=== PATIENT | male | born 1965 | race Caucasian/White ===

== ENCOUNTER 2025-02-24 14:41 | Emergency (ER) | payer MEDICAID, OTHER ==
[~2025-02-24] VITALS: Ht 157.5 cm; Wt 90.0 kg
[~2025-02-24 14:41] MED LIST: AMLO-258 PO; ATOR40TA71 PO; CARV3.1231 PO
[2025-02-24] MEDS ORDERED: DAPA10TA PO (14:48)
[2025-02-24] MEDS ORDERED: APIX5TAB PO (14:48)
[2025-02-24] MEDS ORDERED: CARV6.2534 PO (14:48)
[2025-02-24] MEDS ORDERED: POTA8CAP20 PO (14:48)
[2025-02-24] MEDS ORDERED: BUME1TAB6 PO (14:48)
[2025-02-24 15:16] LABS: ANION GAP 11 mmol/L (8-16); CALCIUM, TOTAL 9.1 mg/dL (8.8-10.5); CARBON DIOXIDE 26 mmol/L (22-29); CHLORIDE 106 mmol/L (98-107); CREATININE 1.77 mg/dL (0.60-1.30); GLOMERULAR FILTR. RATE CALC 40 mL/min (>60); GLUCOSE,RANDOM 127 mg/dL (70-110); POTASSIUM 3.5 mmol/L (3.5-5.1); SODIUM SERUM 143 mmol/L (136-145); UREA NITROGEN, BLOOD 19 mg/dL (7-18)
[2025-02-24 15:20] LABS: BASOPHILS % (AUTO) 1.1 % (0.0-2.0); EOSINOPHILS % (AUTO) 4.5 % (1.0-6.0); HEMATOCRIT 42.4 % (41-53); HEMOGLOBIN 14.6 g/dL (13.5-17.5); LYMPHOCYTES # (AUTO) 2.3 K/uL (1.0-4.8); LYMPHOCYTES % (AUTO) 28.1 % (22.0-44.0); MEAN CORPUSCULAR HEMOGLOBIN 31.4 pg (26.0-34.0); MEAN CORPUSCULAR HGB CONC 34.3 G/dL (31.0-37.0); MEAN CORPUSCULAR VOLUME 91 fL (80-100); MONOCYTES # (AUTO) 0.9 K/uL (0.1-1.0); MONOCYTES % (AUTO) 10.7 % (2.0-9.0); NEUTROPHILS # (AUTO) 4.6 K/uL (1.8-7.7); NEUTROPHILS % (AUTO) 55.6 % (40.0-70.0); PLATELET COUNT (AUTO) 188 K/uL (150-450); RED BLOOD CELL COUNT(AUTO) 4.64 MIL/uL (4.50-5.90); RED CELL DISTRIBUTION WIDTH 13.8 % (11.5-14.5); WHITE BLOOD COUNT (AUTO) 8.2 K/uL (4.5-11.0)
[2025-02-24 15:26] LABS: TROPONIN I-HIGH SENSITIVITY 26 ng/L (<76)
[2025-02-24] MEDS: KETOROLAC TROMETHAMINE 30 MG/ML VIAL IVP ONE (15:41)
[2025-02-24] MEDS: SODIUM CHLORIDE 0.9% 1,000 ML IV ONE (15:41)
[2025-02-24] MEDS ORDERED: CYCL-448 PO (21:00)
[2025-02-24 21:10] VITALS: BP 127/84; PULSE 79; RESP 16; TEMP 98.8; O2SAT 99
== END 2025-02-24 21:38 | disposition home or self-care (01) ==
LOC: EMS 14:48
DX: R07.9 Chest pain, unspecified (principal); I10 Essential (primary) hypertension; Z79.01 Long term (current) use of anticoagulants; Z79.84 Long term (current) use of oral hypoglycemic drugs; Z79.899 Other long term (current) drug therapy
CPT/HCPCS: 99285; 96374; 71045; 96361; 80048; 84484; 85025; 36415; 93005; J1885; J7030